=== PATIENT | female | born 1955 | race Caucasian/White ===

== ENCOUNTER → 2017-10-11 | Outpatient (CLI) | payer OTHER ==
[~2017-10-11] MED LIST: CIPR500 PO; PROM25 PO
[2017-10-11 18:10] LABS: BASOPHILS ABSOLUTE AUTO 0.09 K/mm3 (0.00-0.23); BASOPHILS PERCENT AUTO 1 % (0-2); EOSINOPHILS ABSOLUTE AUTO 0.07 K/mm3 (0.00-0.68); EOSINOPHILS PERCENT AUTO 1 % (0-6); Hemoglobin 19.5 g/dL (11.5-16.0); IMMATURE GRAN ABSOLUTE AUTO 0.34 K/mm3 (0.00-0.10); IMMATURE GRAN PERCENT AUTO 3 % (0-1); LYMPHOCYTES ABSOLUTE AUTO 3.22 K/mm3 (0.84-5.20); LYMPHOCYTES PERCENT AUTO 33 % (21-46); MONOCYTES ABSOLUTE AUTO 0.57 K/mm3 (0.16-1.47); MONOCYTES PERCENT AUTO 6 % (4-13); Mean Corpuscular HGB 27.9 pg (26.0-34.0); Mean Corpuscular HGB Conc 31.7 g/dL (31.5-36.5); Mean Corpuscular Volume 88 fL (80-100); Mean Platelet Volume 11.1 fL (9.1-12.4); NEUTROPHILS ABSOLUTE AUTO 5.57 K/mm3 (1.96-9.15); NEUTROPHILS PERCENT AUTO 57 % (41-73); Platelet Count 207 K/mm3 (150-400); RDW Coefficient Variation 15.2 % (11.7-14.2); RDW Standard Deviation 40.4 fL (35.1-46.3); White Blood Cell Count 9.86 K/mm3 (4.00-11.30)
[2017-10-11 18:16] LABS: Hematocrit 61.5 % (33.0-51.0)
[2017-10-11 18:27] LABS: Alanine Aminotransfer (ALT/SGP 34 U/L (12-78); Albumin, Blood 4.5 g/dL (3.4-5.0); Albumin/Globulin Ratio 1.2 (0.8-1.8); Alk Phos 128 U/L (50-136); Anion Gap 11 mmol/L (6-16); Aspartate Aminotrans (AST/SGOT 19 U/L (12-37); Bilirubin, Total 0.5 mg/dL (0.1-1.0); Blood Urea Nitrogen 22 mg/dL (8-24); CHOL/HDL RATIO 7.8; CO2, Blood 25 mmol/L (21-32); Calcium, Blood 9.9 mg/dL (8.5-10.1); Chloride, Blood 100 mmol/L (98-108); Cholesterol 202 mg/dL (50-200); Free Thyroxine 0.99 ng/dL (0.70-1.60); Globulin, Blood 3.9 g/dL (2.2-4.0); Glucose, Blood 208 mg/dL (70-99); HDL Cholesterol 26 mg/dL (>39); LDL/HDL RATIO 3.8; Low Density Lipoprotein Chol 100 mg/dL (0-110); Potassium, Blood 3.9 mmol/L (3.5-5.5); Sodium, Blood 136 mmol/L (136-145); Total Protein, Blood 8.4 g/dL (6.4-8.2); Triglycerides 382 mg/dL (30-160); Very Low Density Lipoprot Chol 76 mg/dL (6-32)
[2017-10-11 18:41] LABS: Bun/Creatinine Ratio 28.4 (12.0-20.0); Creatinine, Blood 0.77 mg/dL (0.40-1.00); Glomerular Filtration Rate >60 (60-)
== END | disposition home or self-care (01) ==
LOC: LAB 16:30 → LAB SHORT 16:30
PROVIDERS: Nurse Practitioner Family
DX: E55.9 Vitamin D deficiency, unspecified (principal); E11.9 Type 2 diabetes mellitus without complications; I10 Essential (primary) hypertension
CPT/HCPCS: 80053; 80061; 82306; 84439; 84443; 85025

== ENCOUNTER 2018-01-07 11:03 | Inpatient (IN) | payer OTHER ==
[~2018-01-07] VITALS: Ht 160 cm; Wt 71.8 kg
[~2018-01-07 11:03] MED LIST changes: -ACET325 PO; -ALBU90OI61 INH; -ATOR40TA PO; -HYDCHL25 PO; -LEVFLO500 PO; -LOSA25 PO; -METF500C PO; -METO25ER PO; -PARO20 PO; -PROZAC20 MG PO
[2018-01-07 11:41] LABS: BASOPHILS ABSOLUTE AUTO 0.03 K/mm3 (0.00-0.23); BASOPHILS PERCENT AUTO 0 % (0-2); EOSINOPHILS ABSOLUTE AUTO 0.01 K/mm3 (0.00-0.68); EOSINOPHILS PERCENT AUTO 0 % (0-6); Hemoglobin 14.8 g/dL (11.5-16.0); IMMATURE GRAN ABSOLUTE AUTO 0.05 K/mm3 (0.00-0.10); IMMATURE GRAN PERCENT AUTO 0 % (0-1); LYMPHOCYTES ABSOLUTE AUTO 2.24 K/mm3 (0.84-5.20); LYMPHOCYTES PERCENT AUTO 14 % (21-46); MONOCYTES ABSOLUTE AUTO 1.14 K/mm3 (0.16-1.47); MONOCYTES PERCENT AUTO 7 % (4-13); Mean Corpuscular HGB 27.7 pg (26.0-34.0); Mean Corpuscular HGB Conc 32.9 g/dL (31.5-36.5); Mean Corpuscular Volume 84 fL (80-100); Mean Platelet Volume 10.8 fL (9.1-12.4); NEUTROPHILS ABSOLUTE AUTO 12.58 K/mm3 (1.96-9.15); NEUTROPHILS PERCENT AUTO 78 % (41-73); Platelet Count 307 K/mm3 (150-400); RDW Coefficient Variation 12.9 % (11.7-14.2); RDW Standard Deviation 39.5 fL (35.1-46.3); Red Blood Cell Count 5.34 M/mm3 (3.80-5.20); White Blood Cell Count 16.05 K/mm3 (4.00-11.30)
[2018-01-07 11:56] LABS: Alanine Aminotransfer (ALT/SGP 21 U/L (12-78); Albumin, Blood 3.8 g/dL (3.4-5.0); Albumin/Globulin Ratio 0.8 (0.8-1.8); Alk Phos 121 U/L (50-136); Anion Gap 11 mmol/L (6-16); Aspartate Aminotrans (AST/SGOT 14 U/L (12-37); Bilirubin, Total 0.5 mg/dL (0.1-1.0); Blood Urea Nitrogen 16 mg/dL (8-24); CO2, Blood 26 mmol/L (21-32); Calcium, Blood 9.3 mg/dL (8.5-10.1); Chloride, Blood 98 mmol/L (98-108); Creatinine, Blood 0.73 mg/dL (0.40-1.00); Globulin, Blood 4.6 g/dL (2.2-4.0); Glomerular Filtration Rate >60 (60-); Glucose, Blood 260 mg/dL (70-99); Potassium, Blood 3.8 mmol/L (3.5-5.5); Sodium, Blood 135 mmol/L (136-145); Total Protein, Blood 8.4 g/dL (6.4-8.2)
[2018-01-07 12:00] LABS: Troponin I <0.015 ng/mL (0.000-0.040)
[2018-01-07 12:36] LABS: Source, Urine Clean Catch
[2018-01-07 12:45] LABS: Bilirubin, Urine Neg (Neg); Blood, Urine 2+ (Neg); Glucose Qualitative, Urine 3+ (Neg); Ketones, Urine Neg (Neg); Leukocyte Esterase, Urine 3+ (Neg); Nitrite, Urine Pos (Neg); Protein, Urine 3+ (Neg); Urobilinogen, Urine NORM (Normal)
[2018-01-07 13:02] LABS: Appearance, Urine Cloudy (Clear); Color, Urine Yellow (P-Yellow)
[2018-01-07 13:19] LABS: Bacteria Many /hpf; Squamous Epithelial Cells Mod /hpf (Few); White Blood Cells, Urine TNTC /hpf (0-5)
[2018-01-07] MEDS ORDERED: PROZAC20 MG PO (16:35)
[2018-01-07] MEDS ORDERED: METF500C PO (16:36)
[2018-01-07] MEDS ORDERED: PARO20 PO (16:37)
[2018-01-07] MEDS ORDERED: METO25ER PO (16:38)
[2018-01-08 05:11] LABS: BASOPHILS ABSOLUTE AUTO 0.02 K/mm3 (0.00-0.23); BASOPHILS PERCENT AUTO 0 % (0-2); EOSINOPHILS ABSOLUTE AUTO 0.01 K/mm3 (0.00-0.68); EOSINOPHILS PERCENT AUTO 0 % (0-6); Hematocrit 36.2 % (33.0-51.0); Hemoglobin 11.9 g/dL (11.5-16.0); IMMATURE GRAN ABSOLUTE AUTO 0.03 K/mm3 (0.00-0.10); IMMATURE GRAN PERCENT AUTO 0 % (0-1); LYMPHOCYTES ABSOLUTE AUTO 1.49 K/mm3 (0.84-5.20); LYMPHOCYTES PERCENT AUTO 19 % (21-46); MONOCYTES ABSOLUTE AUTO 0.71 K/mm3 (0.16-1.47); MONOCYTES PERCENT AUTO 9 % (4-13); Mean Corpuscular HGB 28.1 pg (26.0-34.0); Mean Corpuscular HGB Conc 32.9 g/dL (31.5-36.5); Mean Corpuscular Volume 86 fL (80-100); Mean Platelet Volume 10.2 fL (9.1-12.4); NEUTROPHILS ABSOLUTE AUTO 5.74 K/mm3 (1.96-9.15); NEUTROPHILS PERCENT AUTO 72 % (41-73); Platelet Count 191 K/mm3 (150-400); RDW Coefficient Variation 12.8 % (11.7-14.2); RDW Standard Deviation 39.9 fL (35.1-46.3); Red Blood Cell Count 4.23 M/mm3 (3.80-5.20)
[2018-01-08 05:38] LABS: Anion Gap 8 mmol/L (6-16); Blood Urea Nitrogen 13 mg/dL (8-24); CO2, Blood 27 mmol/L (21-32); Calcium, Blood 8.3 mg/dL (8.5-10.1); Chloride, Blood 108 mmol/L (98-108); Creatinine, Blood 0.68 mg/dL (0.40-1.00); Glomerular Filtration Rate >60 (60-); Glucose, Blood 150 mg/dL (70-99); Potassium, Blood 3.5 mmol/L (3.5-5.5); Sodium, Blood 143 mmol/L (136-145)
[2018-01-08] MEDS ORDERED: HYDCHL25 PO (09:44)
[2018-01-08] MEDS ORDERED: ATOR40TA PO (09:44)
[2018-01-08] MEDS ORDERED: LOSA25 PO (09:44)
[2018-01-08] MEDS ORDERED: ALBU90OI61 INH (09:46)
[2018-01-08] MEDS ORDERED: LEVFLO500 PO (10:40)
[2018-01-08] MEDS ORDERED: ACET325 PO (10:40)
== END 2018-01-08 13:27 | disposition home or self-care (01) | DRG 872 ==
LOC: ER 11:03 → MEDS 14:36 → ENPENDDIS 01-08 10:00 → MEDS 01-08 13:27
PROVIDERS: Emergency Medicine; Internal Medicine; Physician Assistant
DX: A41.9 Sepsis, unspecified organism (principal); N12 Tubulo-interstitial nephritis, not specified as acute or chronic; E87.2 Acidosis; R65.20 Severe sepsis without septic shock; I10 Essential (primary) hypertension; Z79.84 Long term (current) use of oral hypoglycemic drugs; E11.65 Type 2 diabetes mellitus with hyperglycemia
CPT/HCPCS: 36415; 71046; 80048; 80053; 81001; 82947; 83605; 83690; 84484; 85025; 87077; 87086; 87186; 93005; 93010; 96361; 96365; 96375; 99285; J1650; J1885; J1956; J2405; J7030; J7120

== ENCOUNTER → 2018-01-07 | Outpatient (CLI) | payer OTHER ==
[~2018-01-07] MED LIST changes: +ACET325 PO; +ALBU90OI61 INH; +ATOR40TA PO; +HYDCHL25 PO; +LEVFLO500 PO; +LOSA25 PO; +METF500C PO; +METO25ER PO; +PARO20 PO; +PROZAC20 MG PO
== END | disposition home or self-care (01) ==
LOC: LAB SHORT 10:30 → LAB 10:30
DX: N89.8 Other specified noninflammatory disorders of vagina (principal); R10.9 Unspecified abdominal pain
CPT/HCPCS: 87077; 87086; 87186

== ENCOUNTER → 2019-08-03 | Outpatient (CLI) | payer OTHER ==
[~2019-08-03] MED LIST changes: +ACET325 PO; +ALBU90OI61 INH; +ATOR40TA PO; +HYDCHL25 PO; +LEVFLO500 PO; +LOSA25 PO; +METF500C PO; +METO25ER PO; +Norco 5-325 Ta1 EACH PO; +PARO20 PO; +PROZAC20 MG PO
[2019-08-07 16:06] LABS: HPV 16 Negative (Negative); HPV 18 Negative (Negative); HPV OTHER HR TYPES Negative (Negative)
== END | disposition home or self-care (01) ==
LOC: LAB 18:42 → LAB SHORT 18:42
PROVIDERS: Nurse Practitioner Family
DX: Z01.419 Encounter for gynecological examination (general) (routine) without abnormal findings (principal)
CPT/HCPCS: 87624; G0123

== ENCOUNTER 2019-09-13 11:14 | Inpatient (IN) | payer OTHER ==
[~2019-09-13] VITALS: Ht 165.1 cm; Wt 92.6 kg
[2019-09-13 11:36] LABS: Hematocrit 44.1 % (33.0-51.0); Hemoglobin 14.7 g/dL (11.5-16.0); Mean Corpuscular HGB 27.4 pg (26.0-34.0); Mean Corpuscular HGB Conc 33.3 g/dL (31.5-36.5); Mean Corpuscular Volume 82 fL (80-100); Mean Platelet Volume 9.7 fL (9.1-12.4); Platelet Count 363 K/mm3 (150-400); RDW Coefficient Variation 13.8 % (11.7-14.2); Red Blood Cell Count 5.37 M/mm3 (3.80-5.20); White Blood Cell Count 14.86 K/mm3 (4.00-11.30)
[2019-09-13 12:01] LABS: LDL/HDL RATIO 4.2; Magnesium, Blood 1.9 mg/dL (1.6-2.4); Troponin I 0.107 ng/mL (0.000-0.040); Very Low Density Lipoprot Chol 41 mg/dL (6-32)
[2019-09-13 12:02] LABS: Alanine Aminotransfer (ALT/SGP 26 U/L (12-78); Albumin, Blood 3.8 g/dL (3.4-5.0); Albumin/Globulin Ratio 0.9 (0.8-1.8); Alk Phos 129 U/L (50-136); Anion Gap 11 mmol/L (6-16); Aspartate Aminotrans (AST/SGOT 13 U/L (12-37); Bilirubin, Total 0.3 mg/dL (0.1-1.0); Blood Urea Nitrogen 23 mg/dL (8-24); Bun/Creatinine Ratio 31.2 (12.0-20.0); CHOL/HDL RATIO 6.5; CO2, Blood 25 mmol/L (21-32); Calcium, Blood 10.2 mg/dL (8.5-10.1); Chloride, Blood 102 mmol/L (98-108); Cholesterol 203 mg/dL (50-200); Creatinine, Blood 0.74 mg/dL (0.40-1.00); Globulin, Blood 4.4 g/dL (2.2-4.0); Glomerular Filtration Rate >60 (60-); Glucose, Blood 171 mg/dL (70-99); HDL Cholesterol 31 mg/dL (>39); Low Density Lipoprotein Chol 131 mg/dL (0-110); Potassium, Blood 3.1 mmol/L (3.5-5.5); Sodium, Blood 138 mmol/L (136-145); Total Protein, Blood 8.2 g/dL (6.4-8.2); Triglycerides 207 mg/dL (30-160)
--- NOTE | 2019-09-13 13:36 | NUR ---
ASSUMED CARE OF PT UPON HER ARRIVAL FROM [employer]/CT SCAN AT 1143. C/O 8/10 PAIN IN R UPPER CHEST INTO SHOULDER AND BEHIND NECK. A&O X 3, MOANING SOFTLY IN PAIN. HAVING NAUSEA, NO VOMITING. USING BEDPAN WITH ASSISTANCE. NTG GTT INFUSING AT 10 MCG/MIN OR 6 ML/HR INTO LA 20 G IV. RAC 18 G CAME OUT ACCIDENTALLY DURING REPOSITIONING. SPOKE TO DR. COLLINS BY PHONE FOR ADMISSION ORDERS, PAIN MEDS, AND ANTIEMETIC. R WRIST TR BAND SITE WITHOUT BLEEDING OR HEMATOMA, HAS 11 ML AIR, ENCASED IN ARM BOARD. PT HAS BEEN EDUCATED TO KEEP WRIST STRAIGHT.
--- NOTE | 2019-09-13 14:00 | NUR ---
IV ZOFRAN GIVEN BY Minoo QUARLES RN. PT DEVELOPED SEVERAL AREAS OF OF RED SKIN BLOTCHES NEAR IV SITE, WHICH RESOLVED AFTER ~ 45 MINUTES WITHOUT INTERVENTION. NO RESP DISTRESS OR OTHER SIGNS OF ANAPHLAXIS.
[2019-09-13] MEDS ORDERED: OXYB5 PO (15:19)
[2019-09-13] MEDS ORDERED: CYCL10 PO (15:21)
[2019-09-13] MEDS ORDERED: [UNRECOGNIZED DRUG - SUPPLY] PO (15:29)
--- NOTE | 2019-09-13 15:59 | NUR ---
REASSESSMENT: ATTEMPTED TO TITRATE OXYGEN DOWN TO 6 L/MIN NC, BUT O2 SAT NOT STAYING ABOVE 88%. SLEEPING AT TIME OF ASSESSMENT, AROUSES TO SPEECH, ORIENTED. STARTED ON VANCO AND CEFEPIME, ROCEPHIN D/C'D. NO BM YET TODAY. DECLINED BATH TODAY, STATING TOO FATIGUED. GOOD URINE OUTPUT. DENIES PAIN. LUNGS WITH CRACKLES IN BILATERAL LL, CLEAR IN UPPER LOBES.
--- NOTE | 2019-09-13 16:38 | NUR ---
CARDIAC ECHO IN PROGRESS.
--- NOTE | 2019-09-13 16:58 | NUR ---
Echocardiogram completed.
--- NOTE | 2019-09-13 19:23 | NUR ---
CALLED PT'S SPOUSE ABHAY, GAVE UPDATE ON PT CONDITION. PAIN LEVEL HAS DECREASED TO 4/10 FROM 9/10 AFTER TORADOL GIVEN, BP AND HR ARE MORE WNL. NTG GTT TITRATED DOWN TO 30 MCG/HR. PATIENT APPEARS AND STATES SHE IS MUCH MORE CONFORTABLE.
--- NOTE | 2019-09-13 19:37 | NUR ---
SHIFT SUMMARY: PAIN BETTER CONTROLLED AFTER TORADOL ADMINISTRATION. NTG GTT TITRATED DOWN TO 30 MCG/HR. ORIENTED X 3, DROWSY. BP 160-180/80-90'S, HR 80-95. ON 2 L/MIN NC, SAT 95-99%. SINUS RHYTHM WITH BBB. GOOD URINE OUTPUT. C/O NAUSEA, UNABLE TO EAT DINNER. LAST CBG 186, NO INSULIN GIVEN D/T NAUSEA. GOT UP TO BSC X 2 TO URINATE.
[2019-09-13 20:40] LABS: Albumin, Blood 3.5 g/dL (3.4-5.0); Albumin/Globulin Ratio 0.9 (0.8-1.8); Bilirubin, Direct 0.1 mg/dL (0.0-0.3); Bilirubin, Indirect 0.4 mg/dL (0.1-0.7); Bilirubin, Total 0.5 mg/dL (0.1-1.0); Globulin, Blood 3.8 g/dL (2.2-4.0); Total Protein, Blood 7.3 g/dL (6.4-8.2)
--- NOTE | 2019-09-13 21:00 | NUR ---
ASSUMPTION OF CARE ASSUMED CARE OF PT @ 190, PT AWAKE IN BED, ORIENTED TO SELF, PLACE, EVENT, AND FOLLOWING DIRECTIONS. REPORTS 5/10 CP, IMPROVED SINCE TORADAL ADMINISTRATION. ON 2L PER NC TO MAINTAIN OXYGEN SATURATIONS>90%, DENIES SOB. MONITOR SHOWS SINUS RHYTHM WITH HR 80'S-90'S, PT HTN, NITRO GTT @ 30mcg/min FOR CP. R RADIAL ACCESS SITE WITH GAUZE DRESSING, GUAZE DRY, SCANT SANGUINEOUS DRAINAGE NOTED ON SKIN. PT REPORTS NAUSEA AND POOR PO INTAKE. DISCUSSED MORNING POTASSIUM WITH DR RICHARDSON AND UPDATED ON PTS OVERALL STATUS, SEE NEW ORDER FOR POTASSIUM REPLACEMENT, HOSPITAL CONSULT, ABD US, TORADOL, AND LIVER PANEL. DR GUARDADO IN TO SEE PT @ 2044, SEE NEW ORDERS.
--- NOTE | 2019-09-13 23:54 | NUR ---
CHRONIC PAIN PT REPORTS LEG PAIN OF 9/10, STS BETTER WITH SOME REPOSITIONING BUT DECLINES ASSISTANCE OR ADDITIONAL PILLOWS AT THIS TIME. PT STS THIS HAS BEEN A CHRONIC ISSUED THAT HAS BEEN POORLY MANAGED WITH PCP OUTPT. NOTIFIED PT ADDITIONAL FENTANYL CANNOT BE READMINISTERED UNTIL APPROX 0200, PT DECLINED ANY OTHER INTERVENTIONS. PT ALSO STS HAVING DIFFICLUT TIME GETTING COMFORTABLE DUE TO LINES/TUBES AND BP CUFF. PT REMOVED O2 NC AT UNKNOWN TIME, KEPT PT ON RA AT THIS TIME, WILL CONTINUOUSLY MONITOR O2 SATURATIONS. EDUCATED PT OF IMPORTANCE OF MONITORING BP WHILE ON NITRO GTT, PT VERBILIZES UNDERSTANDING.
--- NOTE | 2019-09-14 02:21 | NUR ---
PT UP AT SIDE OF BED, TEARFUL, STS CANNOT SLEEP DUE TO LEG PAIN WHICH IS POORLY MANAGED ON AN OUT PATIENT BASIS. PT ANGRLY WITH CURRENT PCP, IMANI "IT TOOK 3 FREEKING DAYS OF ME CRYING AT NIGHT BEFORE SHE WOULD GIVE ME ANYTHING." PT DECLINES REPOSITIONING, ADDITIONAL PILLLOWS, HEAT/COLD PACK, STS SHE HAS TRIED THOSE THINGS AT HOME AND THEY DO NOT WORK. ONE TIME DOES OF TORADOL PROVIDED. INFORMED PT THAT ALTERNATIVE PAIN MANAGEMENT TECHNIQUES WOULD NEED TO BE ATTEMPTED IF TORADOL INADEQUATE FOR PAIN MANAGEMENT AND THAT TORADOL IS NOT A SENIOR CARE MEDICATION DUE TO IMPACT ON THE KIDNEYS. PT VERBILIZES UNDERSTANDING.
--- NOTE | 2019-09-14 03:23 | NUR ---
PT STS THE TORADOL "IS NOT TOUCHING HER PAIN", THIS RN CONTINUES TO EDUCATE PT REGARDING CHRONIC PAIN/PAIN MANAGEMENT TECHNIQUES. PT OPEN TO TRYING HEAT PACK, PILLOWS AND REPOSITIONING.
[2019-09-14 03:27] LABS: BASOPHILS ABSOLUTE AUTO 0.04 K/mm3 (0.00-0.23); BASOPHILS PERCENT AUTO 0 % (0-2); EOSINOPHILS ABSOLUTE AUTO 0.02 K/mm3 (0.00-0.68); EOSINOPHILS PERCENT AUTO 0 % (0-6); Hematocrit 37.5 % (33.0-51.0); Hemoglobin 12.5 g/dL (11.5-16.0); IMMATURE GRAN ABSOLUTE AUTO 0.06 K/mm3 (0.00-0.10); IMMATURE GRAN PERCENT AUTO 0 % (0-1); LYMPHOCYTES ABSOLUTE AUTO 2.05 K/mm3 (0.84-5.20); LYMPHOCYTES PERCENT AUTO 13 % (21-46); MONOCYTES ABSOLUTE AUTO 0.92 K/mm3 (0.16-1.47); MONOCYTES PERCENT AUTO 6 % (4-13); Mean Corpuscular HGB 27.5 pg (26.0-34.0); Mean Corpuscular HGB Conc 33.3 g/dL (31.5-36.5); Mean Corpuscular Volume 83 fL (80-100); Mean Platelet Volume 9.6 fL (9.1-12.4); NEUTROPHILS PERCENT AUTO 81 % (41-73); Platelet Count 301 K/mm3 (150-400); RDW Standard Deviation 41.9 fL (35.1-46.3); Red Blood Cell Count 4.54 M/mm3 (3.80-5.20); White Blood Cell Count 15.99 K/mm3 (4.00-11.30)
[2019-09-14 03:42] LABS: Anion Gap 7 mmol/L (6-16); Blood Urea Nitrogen 18 mg/dL (8-24); Bun/Creatinine Ratio 22.1 (12.0-20.0); CO2, Blood 26 mmol/L (21-32); Chloride, Blood 103 mmol/L (98-108); Creatinine, Blood 0.82 mg/dL (0.40-1.00); Glomerular Filtration Rate >60 (60-); Glucose, Blood 195 mg/dL (70-99); Sodium, Blood 136 mmol/L (136-145)
--- NOTE | 2019-09-14 06:17 | NUR ---
SHIFT SUMMARY PT DID NOT SLEEP WELL T/O NIGHT, REMAINS ORIENTED, BUT OVERALL PAIN IN LOW BACK AND LEG POORLY MANAGED (SEE PREV NOTES), PT DENIES CP SINCE APPROX 1999. PT MAINTAINED O2 SATURATIONS>90% ON RA FOR MUCH OF SHIFT, MONITOR SHOWS SINUS RHYTHM, PVC'S/BIGEMINY NOTED TOWARDS END OF SHIFT, PT CONTINUES TO DENY CP AT THIS TIME, BP IMPROVED, NITRO GTT @ 15mcg/min. R WRIST IMMOBILIZER REMAINS IN PLACE, FREQUENT REEDUCATION PROVIDED TO PT TO KEEP WRIST IMMOBILIZED AND NON-WEIGHT BARING, CONTINUE TO REINFORCE. PT TOLERATING PO INTAKE, BUT HAS POOR APPETITE. PT REPORTS CHRONIC PAIN TO LOW BACK AND LEG THAT HAS BEEN AN ISSUE FOR THE PREV 5-6 MONTHS. THIS RN RECEIVED VARYING REPORTS FROM PT ON HOME MANAGEMENT, AT ONE POINT PT REPORTED TAKING NAPROXEN FOR CHRONIC PAIN, NOW STS SHE NO LONGER TAKES NAPROXEN BUT TAKES A "GREEN PILL", STS WILL BRING IN RX. MULTIPLE ATTEMPTS WITH FENTANYL, TORADOL, REPOSITIONING, AND HEAT APPLICATIONS WERE UNSUCCESSFUL AT MANAGING PAIN TO A TOLERABLE LEVEL.
--- NOTE | 2019-09-14 08:15 | NUR ---
ASSUMED CARE: REPORT RECEIVED FROM ALDO Bonilla RN. ASSUMED CARE OF THIS PT AT APPROX 0700. ON ASSESSMENT, THE PT IS AWAKE, A&O & CRYING OUT IN PAIN. WHILE CONVERSING W/ THE PT SHE IS ABLE TO SETTLE SOMEWHAT & STS THAT PAIN IS IMPROVED WHILE SHE IS DISTRACTED. DESCRIBES PAIN RADIATING FROM HER LOWER BACK DOWN TO HER R FOOT & STS IT IS "NERVE PAIN." PT TAKING INDOMETHACIN AT HOME & STS THIS IS THE "ONLY THING" THAT MANAGES HER PAIN AT ALL. WILL DISCUSS W/ PROVIDERS. LS ARE CLEAR T/O, PT ON RA W/ O2 SATS > 92%. MONITOR SHOWS SR-ST W/ HR 90-100s, BP STABLE. NO GI/ COMPLAINTS. SKIN OVERALL CDI & R RADIAL SITE S/P ANGIOGRAM IS WNL; OPSITE DRESSING CDI, IMMOBILIZER IN PLACE. SITE FREE OF BLEEDING, BRUISING OR HEMATOMA FORMATION. WILL CONTINUE TO MONITOR & UPDATE NEEDED.
--- NOTE | 2019-09-14 09:30 | NUR ---
DR THOMAS & DR SARMIENTO: DR THOMAS AT BEDSIDE TO EVAL PT. POOR PAIN CONTROL IS DISCUSSED & ORDERS PLACED FOR ULTRAM. NO OTHER CHANGES AT THIS TIME. DR SARMIENTO AT BEDSIDE TO EVAL PT. INCREASED ECTOPY DISCUSSED & METOPROLOL DOSE INCREASED TO 25 MG DAILY W/ ADDED 12.5 MG DOSE THIS AM TO EQUAL 25 MG TODAY. LOW MAG 1.9 ALSO DISCUSSED & ORDERS FOR IV REPLETION HAVE BEEN PLACED. PROVIDER STS THAT PT IS NOT TO TAKE INDOMETHACIN R/T INCREASED RISK OF IA, RISKS OF NSAID USE WILL BE DISCUSSED W/ THE PT BY THIS RN. WILL CONTINUE TO MONITOR & UPDATE NEEDED.
--- NOTE | 2019-09-14 17:03 | NUR ---
DR THMOAS: CALL TO PROVIDER TO NOTIFY HIM THAT NITRO DRIP HAS BEEN OFF FOR APPROX 1 HR & PT CONTINUES W/ NO CP OR ARM PAIN. ALSO INFORMED HIM THAT PT's CHRONIC PAIN IS NOW BETTER CONTROLLED W/ ADDITION OF ULTRAM, & THAT NUMBER OF PVCs HAS DECREASED SIGNIFICANTLY SINCE MAG SULFATE INFUSION. STS OKAY FOR PT TO BE MEDICAL W/ NO TELE STATUS, ORDERS PLACED.
--- NOTE | 2019-09-14 17:38 | NUR ---
SHIFT SUMMARY: NO ACUTE CHANGES SINCE PRIOR UPDATES. PT REMAINS A&O, PLEASANT & COOPERATIVE. SHE CONTINUES TO DENY CHEST/ARM PAIN & STS THAT HER BACK/LEG PAIN IS IMPROVED SUBSTANTIALLY THIS AFTERNOON. LS REMAIN CLEAR T/O, PT ON RA W/ O2 SATS > 92%. MONITOR SHOWS SR W/ HR 80s, BP STABLE, PVCs NOW INFREQUENT. NO GI/ COMPLAINTS. SKIN OVERALL CDI, R RADIAL ACCESS SITE WNL & UNCHANGED FROM PRIOR ASSESSMENT. WILL CONTINUE TO MONITOR & REPORT OFF TO ONCOMING RN.
--- NOTE | 2019-09-14 18:19 | NUR ---
Per admit trigger, I made several atempts to meet with Quynh to offer information on ACP. On each attempt, she was curled up in a ball and sleeping deeply. I left information on bedside table. [employer] Operator services will remain available.
--- NOTE | 2019-09-14 20:39 | NUR ---
ASSUMPTION OF CARE ASSUMED CARE OF PT @ 1900, PT RESTING IN BED, AROUSABLE TO VERBAL STIMULI, ORIENTED TO SELF, EVENT, LOCATION AND FOLLOWING DIRECTIONS. O2 SATURATIONS>90% ON RA, MONITOR SHOWS HR 90'S, PT MILDLY HYPERTENSIVE, NITRO GTT OFF. PT DENIES CP AND SOB. R RADIAL SITE STABLE, SEE WOUND ASSESSMENT. PT REPORTS IMPROVED PAIN MANAGEMENT WITH NEW MEDICATION (ULTRAM), EVENING PRN MEDICATIONS PROVIDED TO PROVIDE ADEQUATE PAIN CONTROL. CALL LIGHT WITHIN REACH.
--- NOTE | 2019-09-14 22:12 | NUR ---
REPORT CALLED TO ANTONIO SAMUEL
--- NOTE | 2019-09-14 22:29 | NUR ---
Patient arrived to room 301 from ICU via wheelchair with SENIOR ENVIRONMENTAL PRACTICE LEADER. A7OX4, no complaints of pain. right radial puncture site rrom yesterday's angio soft flat and dry without eccymosis or hematoma wrapped in arm immobilizer. Up independently in room. VSS.
[2019-09-15 05:12] LABS: Hemoglobin 13.2 g/dL (11.5-16.0); Mean Corpuscular HGB Conc 32.2 g/dL (31.5-36.5); Mean Corpuscular Volume 84 fL (80-100); Mean Platelet Volume 9.7 fL (9.1-12.4); Platelet Count 277 K/mm3 (150-400); RDW Coefficient Variation 14.1 % (11.7-14.2); RDW Standard Deviation 43.2 fL (35.1-46.3); Red Blood Cell Count 4.89 M/mm3 (3.80-5.20); White Blood Cell Count 10.19 K/mm3 (4.00-11.30)
[2019-09-15 05:33] LABS: Anion Gap 4 mmol/L (6-16); Blood Urea Nitrogen 14 mg/dL (8-24); Bun/Creatinine Ratio 20.9 (12.0-20.0); CO2, Blood 27 mmol/L (21-32); Chloride, Blood 108 mmol/L (98-108); Creatinine, Blood 0.67 mg/dL (0.40-1.00); Glomerular Filtration Rate >60 (60-); Glucose, Blood 118 mg/dL (70-99); Magnesium, Blood 2.3 mg/dL (1.6-2.4); Potassium, Blood 3.8 mmol/L (3.5-5.5); Sodium, Blood 139 mmol/L (136-145)
[2019-09-15] MEDS ORDERED: ASPI81CH PO (12:05)
[2019-09-15] MEDS ORDERED: METO25ER PO (12:06)
[2019-09-15] MEDS ORDERED: PANT40 PO (12:07)
[2019-09-15] MEDS ORDERED: TICA90TA PO (12:07)
[2019-09-15] MEDS ORDERED: TRAMADOL HCL E100 M2 PO (12:08)
== END 2019-09-15 12:55 | disposition home or self-care (01) | DRG 247 ==
LOC: ER 11:14 → ICUE 11:32 → ICUW 11:32 → ICUE 11:42 → MEDS 09-14 22:21
PROVIDERS: Emergency Medicine; ADMIT Internal Medicine Interventional Cardiology
PROC: 027034Z Dilation of Coronary Artery, One Artery with Drug-eluting Intraluminal Device, Percutaneous Approach (ICD-10-PCS; principal; 2019-09-13)
PROC: 02C03ZZ Extirpation of Matter from Coronary Artery, One Artery, Percutaneous Approach (ICD-10-PCS; 2019-09-13)
PROC: B211YZZ Fluoroscopy of Multiple Coronary Arteries using Other Contrast (ICD-10-PCS; 2019-09-13)
DX: I21.4 Non-ST elevation (NSTEMI) myocardial infarction (principal); I50.22 Chronic systolic (congestive) heart failure; I11.0 Hypertensive heart disease with heart failure; E83.42 Hypomagnesemia; M54.30 Sciatica, unspecified side; E11.9 Type 2 diabetes mellitus without complications; E78.5 Hyperlipidemia, unspecified; E87.6 Hypokalemia; Z88.0 Allergy status to penicillin
CPT/HCPCS: 36415; 71275; 76705; 76937; 80048; 80053; 80061; 80076; 82947; 83036; 83690; 83735; 84484; 85025; 85027; 85347; 86850; 86900; 86901; 93005; 93010; 93454; 96374; 96375; 99152; 99153; 99285-25; A9270-GY; C1725; C1757; C1769; C1874; C1887; C1894; C8929; C9113; C9606; J1644; J1885; J1940; J2250; J2405; J3010; J3246; J3475; J3480; J7030; Q9957; Q9967

== ENCOUNTER 2023-02-14 09:24 | Inpatient (IN) | payer MEDICARE, OTHER ==
[~2023-02-14] VITALS: Ht 170.2 cm; Wt 63.5 kg
[~2023-02-14 09:24] MED LIST changes: +ALBU90OI INH; -ALBU90OI61 INH; +ASPI81CH PO; +CYCL10 PO; +NITR100CA PO; +ONDA4ODT MM; +OXYB5 PO; +PANT40 PO; +TICA90TA PO; +TRAMADOL HCL E100 M2 PO; +[UNRECOGNIZED DRUG - SUPPLY] PO
[2023-02-14 10:44] LABS: Albumin, Blood 4.1 g/dL (3.4-5.0); Albumin/Globulin Ratio 1.1 (0.8-1.8); Bilirubin, Total 0.4 mg/dL (0.1-1.0); Bun/Creatinine Ratio 20.9 (12.0-20.0); Calcium, Blood 10.2 mg/dL (8.5-10.1); Creatinine, Blood 0.67 mg/dL (0.40-1.00); Globulin, Blood 3.7 g/dL (2.2-4.0); Total Protein, Blood 7.8 g/dL (6.4-8.2)
[2023-02-14 10:56] LABS: Bicarbonate Venous 29.6 mmol/L (24.0-30.0); PCO2 Venous 36.1 mmHg (38-42); pH Blood Venous 7.51 (7.34-7.37)
[2023-02-14 11:10] LABS: BASOPHILS ABSOLUTE AUTO 0.04 K/mm3 (0.00-0.23); BASOPHILS PERCENT AUTO 0 % (0-2); EOSINOPHILS ABSOLUTE AUTO 0.01 K/mm3 (0.00-0.68); EOSINOPHILS PERCENT AUTO 0 % (0-6); Hemoglobin 15.4 g/dL (11.5-16.0); IMMATURE GRAN ABSOLUTE AUTO 0.02 K/mm3 (0.00-0.10); IMMATURE GRAN PERCENT AUTO 0 % (0-1); LYMPHOCYTES ABSOLUTE AUTO 1.16 K/mm3 (0.84-5.20); LYMPHOCYTES PERCENT AUTO 11 % (21-46); MONOCYTES ABSOLUTE AUTO 0.21 K/mm3 (0.16-1.47); MONOCYTES PERCENT AUTO 2 % (4-13); Mean Corpuscular HGB 28.1 pg (26.0-34.0); Mean Corpuscular HGB Conc 34.2 g/dL (31.5-36.5); Mean Corpuscular Volume 82 fL (80-100); Mean Platelet Volume 9.4 fL (9.1-12.4); NEUTROPHILS PERCENT AUTO 87 % (41-73); Platelet Count 312 K/mm3 (150-400); RDW Coefficient Variation 13.6 % (11.7-14.2); RDW Standard Deviation 40.5 fL (35.1-46.3); Red Blood Cell Count 5.49 M/mm3 (3.80-5.20); White Blood Cell Count 10.84 K/mm3 (4.00-11.30)
[2023-02-14 18:22] VITALS: BP 158/92
[2023-02-14 19:41] VITALS: BP 144/77
[2023-02-14] MEDS ORDERED: BUSPIRONE HCL7.5 M6 PO (21:19)
[2023-02-14] MEDS ORDERED: EZETIMIBE10 M6 PO (21:19)
[2023-02-14] MEDS ORDERED: LOSARTAN-HCTZ1 EAC5 PO (21:20)
[2023-02-14] MEDS ORDERED: PIOGLITAZONE HC15 MG PO (21:20)
[2023-02-14] MEDS ORDERED: ASPI81CH PO (21:21)
[2023-02-14] MEDS ORDERED: THERA-D2000 UNIT PO (21:21)
[2023-02-14] MEDS ORDERED: Ventolin/Prove6.7 GM INH (21:21)
--- NOTE | 2023-02-14 23:22 | NUR ---
ASSUMED PT CARE FORM JONAH RN ON . A&OX4, EASILY DISTRACTED. DENIES ANY CHEST PAIN/PRESSURE AT THIS TIME. HR IS SR WITH PVC'S IN THE 80'S. DENIES SOB, RESPIRATIONS EVEN AND UNLABORED. O2 SATS DIPPING TO 88 WHEN AWAKE AND TALKING, MAINTAINING THERE. PLACED ON 2 LPM O2 VIA NC. PT REPORTS "THEY ALWAYS HAVE TROUBLE WITH MY OXYGEN" BUT DENIES SUPPLIMENTAL O2 AT HOME. REPORTS "I'M SUPPOSED TO USE A CPAP AT HOME BUT I NEVER GOT ONE BECAUSE I KNOW I WONT WEAR IT". BP STABLE, SEE RECORDED VITAL SIGNS. AFEBRILE. ORIENTED TO ROOM AND CALL LIGHT. PT STATES SHE WISHES TO BE DNR. REVIEWED PT BEING LIMITED CODE IN COMPUTER. PT STATES SHE PREFERS TO BE DNR. DR. ZAMORA INFORMED WHILE ROUNDING ON UNIT. PT RESTING IN BED. DENIES NEEDS AT THIS TIME. CALL LIGHT IN REACH. BED IN LOW POSITION.
[2023-02-15 00:19] VITALS: BP 144/78
[2023-02-15 03:48] VITALS: BP 155/73
--- NOTE | 2023-02-15 04:14 | NUR ---
PT COMPLAINING OF PAIN 4/10 IN MID ABDOMEN RIGHT BELOW STERNUM. DENIES THAT IS TRAVELS ANYWHERE. VITAL SIGNS STABLE. NO CHANGES NOTED WITH TELEMETRY. PT REPORT SOB, STATS > 92% ON 2 LPM. MEDICATED FOR NAUSEA, PAIN, AND ANXIETY, SEE EMAR. PT UP TO BSC WITH UNSTEADY GAIT. VOIDED CLEAR, YELLOW URINE. ON RETURNING TO BED PT STATES PAIN IS IMPROVING. WILL CONTINUE TO MONITOR. PT ICE CHIPS ONLY SINCE MN, NOW NPO PER ORDERS. CALL LIGHT IN REACH. BED IN LOW POSITION.
[2023-02-15 08:17] VITALS: BP 126/75
[2023-02-15 11:20] VITALS: BP 143/94
[2023-02-15 17:00] VITALS: BP 147/89
--- NOTE | 2023-02-15 17:15 | NUR ---
SHIFT SUMMARY NO ACUTE CHANGES THIS SHIFT. PT A&OX4. VSS. SPO02>90% ON RA THIS SHIFT. TELEMETRY SHOWS NSR W/ PVCS AND BBB, HR 70'S-100'S. DOWN THIS AM FOR FIRST PORTION OF STRESS TEST. ECHO DONE THIS AFTERNOON. SEE CHART. NPO AT MIDNIGHT FOR SECOND PORTION OF STRESS TEST 02/16. UP IN SHOWER THIS AFTERNOON. DAUGHTER AND GRANDSON VISITED THIS AFTERNOON. CALL [facility] IN REACH.
[2023-02-15 20:22] VITALS: BP 145/73
--- NOTE | 2023-02-15 21:27 | NUR ---
ASSUMED PT CARE FROM JONAH SAMUEL ON . A&OX4. DENIES ANY CHEST PAIN/PRESSURE. HR SR WITH PVC'S AND BBB IN 90'S. STABLE BP, SEE RECORDED VITAL SIGNS. DENIES SOB. O2 SATS > 92% ON RA. RESPIRATIONS EVEN AND UNLABORED. DENIES NAUSEA. DENIES NEEDS AT THIS TIME. CALL LIGHT IN REACH. BED IN LOW POSITION.
[2023-02-16 00:07] VITALS: BP 138/71
[2023-02-16 04:05] VITALS: BP 140/82
[2023-02-16 04:05] LABS: Base Excess Venous 6.6 mmol/L; Bicarbonate Venous 29.4 mmol/L (24.0-30.0); PCO2 Venous 45.9 mmHg (38-42); pH Blood Venous 7.44 (7.34-7.37)
[2023-02-16 04:08] LABS: BASOPHILS ABSOLUTE AUTO 0.02 K/mm3 (0.00-0.23); BASOPHILS PERCENT AUTO 0 % (0-2); EOSINOPHILS PERCENT AUTO 0 % (0-6); Hematocrit 43.3 % (33.0-51.0); Hemoglobin 14.7 g/dL (11.5-16.0); IMMATURE GRAN ABSOLUTE AUTO 0.09 K/mm3 (0.00-0.10); IMMATURE GRAN PERCENT AUTO 1 % (0-1); LYMPHOCYTES ABSOLUTE AUTO 1.72 K/mm3 (0.84-5.20); LYMPHOCYTES PERCENT AUTO 9 % (21-46); MONOCYTES ABSOLUTE AUTO 0.31 K/mm3 (0.16-1.47); MONOCYTES PERCENT AUTO 2 % (4-13); Mean Corpuscular HGB 28.3 pg (26.0-34.0); Mean Corpuscular HGB Conc 33.9 g/dL (31.5-36.5); Mean Corpuscular Volume 83 fL (80-100); Mean Platelet Volume 9.8 fL (9.1-12.4); NEUTROPHILS ABSOLUTE AUTO 16.46 K/mm3 (1.96-9.15); NEUTROPHILS PERCENT AUTO 89 % (41-73); Platelet Count 343 K/mm3 (150-400); RDW Coefficient Variation 14.3 % (11.7-14.2); RDW Standard Deviation 43.4 fL (35.1-46.3); Red Blood Cell Count 5.19 M/mm3 (3.80-5.20)
[2023-02-16 04:29] LABS: Bun/Creatinine Ratio 39.3 (12.0-20.0); Calcium, Blood 9.6 mg/dL (8.5-10.1); Creatinine, Blood 0.69 mg/dL (0.40-1.00); Potassium, Blood 4.4 mmol/L (3.5-5.5)
--- NOTE | 2023-02-16 05:10 | NUR ---
SHIFT SUMMARY: NO ACUTE CHANGES NOTED DURING THIS SHIFT. PT PLACED ON 2 LPM WHEN SLEEPING DEEPLY DUE TO O2 SATS DECREASING TO 88%. WHILE AWAKE PT ON RA WITH SATS IN HIGH 90'S. VOIDING CLEAR, YELLOW URINE WITHOUT DIFFICULTY. NPO AT UT FOR STRESS TEST THIS A.M. CALL LIGHT IN REACH. BED ALARM ON FOR PT SAFETY, UNSTEADY GAIT WHEN DROWSY.
[2023-02-16 08:12] VITALS: BP 129/76
--- NOTE | 2023-02-16 10:58 | NUR ---
REPEAT EKG PERFORMED PT HAD WENT INTO A REGULAR VENTRICULAR RHYTHM WITH WHAT LOOKS LIKE AN ST CHANGE. THIS VENTRICULAR RHYTHM WAS SHORT IN DURATION BEFORE RETURNING TO SINUS RHYTHM WITH BBB AND ST DEPRESSION. EKG REVEALS THAT ST DEPRESSION IS UNCHANGED FROM EKG TAKEN LAST NOC, AND NEW EKG COFORMS WITH LAST EKG TAKEN
[2023-02-16 12:04] VITALS: BP 161/83
--- NOTE | 2023-02-16 14:25 | NUR ---
ATTEMPTED TO DO NUCLEAR STRESS TEST WITH LEXISCAN. DURING TEST, PT IV INFILTRATED. IV WAS DC'D. CATH INTACT. PRESSURE DSG APPLIED. VSS. TEST WILL BE ATTEMPTED AGAIN TOMORROW AM. A NEW IV IS BEING INSERTED.
[2023-02-16 16:52] VITALS: BP 160/60
--- NOTE | 2023-02-16 17:58 | NUR ---
PT'S STRESS TEST WAS NOT SUCCESSFUL TODAY IV INFILTRATED, WILL TRY AGAIN TOMORROW. PT HAS BEEN RESTING IN BED T/O THE DAY, ANXIOUS APPEARING, BUT IS A/O X4 ANSWERING QUESTIONS APPROPRIATELY. DENIES CP OR SOB. VSS. PT INDEPENDANT TO BATHROOM. SHE HAS REQUIRED INSULIN COVERAGE FOR BLOOD SUGARS, PT DOES APPEAR TO HAVE LOW UNDERSTANDING OF HER DIABETES DIAGNOSIS, BUT IS WILLING TO LEARN AND INVOLVED IN HER CARE. PT REPORTS A GOOD AMOUNT OF STRESS WITHIN HER HOME RELATED TO HER SPOUSE OF 42 YEARS HAVING AN AFFAIR, SHE REPORTS THAT SHE IS COPING WELL WITH THIS STRESS.
[2023-02-16 21:34] VITALS: BP 160/76
--- NOTE | 2023-02-16 22:59 | NUR ---
ASSUMED CARE AT 1900 PT LAYING IN BED SLEEPING AT SHIFT CHANGE. SHE IS A/O X4 AND ABLE TO MAKE HER NEEDS KNOWN; SHE IS ODD AT TIMES TELLING PERSONAL STORIES ASSUMING THAT STAFF KNOW THE INDIVIDUALS IN HER STORY FROM SEVERAL YEARS AGO; SHE IS PLESENT THOUGH AND REDIRECTABLE. SPO2 >95% ON RA. AFEBRILE. HR 70-80'S; NO C/O CHEST PAIN OR DYSPNEA. BP STABLE. AMBULATES INDEPENDENTLY; STEADY ON HER FEET. SEE SHIFT ASSESSMENT FOR FULL ASSESSMENT.
[2023-02-17 00:09] VITALS: BP 147/81
[2023-02-17 03:56] LABS: Hematocrit 41.8 % (33.0-51.0); Mean Corpuscular HGB 28.3 pg (26.0-34.0); Mean Corpuscular HGB Conc 33.5 g/dL (31.5-36.5); Mean Corpuscular Volume 85 fL (80-100); Mean Platelet Volume 9.9 fL (9.1-12.4); Platelet Count 313 K/mm3 (150-400); RDW Coefficient Variation 14.4 % (11.7-14.2); RDW Standard Deviation 44.4 fL (35.1-46.3); Red Blood Cell Count 4.94 M/mm3 (3.80-5.20); White Blood Cell Count 16.13 K/mm3 (4.00-11.30)
[2023-02-17 03:57] VITALS: BP 147/86
[2023-02-17 04:19] LABS: CHOL/HDL RATIO 5.2; Cholesterol 206 mg/dL (50-200); HDL Cholesterol 40 mg/dL (>39); LDL/HDL RATIO 3.4; Low Density Lipoprotein Chol 137 mg/dL (0-110); Triglycerides 147 mg/dL (30-160); Very Low Density Lipoprot Chol 29 mg/dL (6-32)
--- NOTE | 2023-02-17 06:24 | NUR ---
END OF SHIFT SUMMARY NO ACUTE EVENTS OVERNIGHT. PT WAS ABLE TO SLEEP FOR MOST OF THE NIGHT. SHE CONT TO BE A/O X4 AND ABLE TO MAKE HER NEEDS KNOWN. SPO2 >98% ON RA. HR 60-70'S. SBP 140-160'S; NO C/O CHEST PAIN OR DYSPNEA. SHE IS ABLE TO AMBULATE TO THE BATHROOM INDEPENDENTLY. THE ONLY IV SHE HAD INFULTRATED THIS AM; THIS IV WAS ABLE TO FLUSH AT THE BEGINNING OF THE SHIFT WITHOUT PAIN AND IS NOW PAINFUL; IV PULLED AND UNABLE TO PLACE ANOTHER, VERY CHALLENGING TO FIND ACCESS. WILL REPORT TO AM RN WHEN AVAILABLE.
[2023-02-17 08:25] VITALS: BP 145/80
--- NOTE | 2023-02-17 09:29 | NUR ---
AM NOTE: PATIENT ALERT AND ORIENTED X4. DENIES NUMBNESS/TINGLING. BILATERAL CREW FOREMAN STRENGTH. MOVES IND IN BED. PERRLA. ON ROOM AIR SATING ABOVE 92%. DENIES SOB/COUGH. LUNGS SOUNDING CLEAR AND DIM IN BASES. EVEN AND UNLABORED RESPIRATIONS. TELE SHOWING SR WITH PVC'S. HR 80-90'S. BP STABLE. DENIES CHEST PAIN/PRESSURE/PALPITATIONS. 2ND PART OF STRESS TEST COMPLETED THIS AM. NO EDEMA NOTED. EATING AND VOIDING WNL. BOWEL TONES PRESENT. DENIES ABDOMINAL PAIN/NAUSEA. SKIN OVERALL C/D/I. POWERGLIDE TO LEFT UPPER ARM, SALINE LOCKED. PATIENT EATING BREAKFAST AT THIS TIME. CALL LIGHT IN REACH, DENIES NEEDS.
[2023-02-17 11:10] VITALS: BP 161/93
[2023-02-17] MEDS ORDERED: LOSA50 PO ×2 (13:45→14:04)
[2023-02-17] MEDS ORDERED: IPRAT-ALBUT 0.5-3 ML INH (14:03)
[2023-02-17] MEDS ORDERED: METO25ER PO (14:05)
[2023-02-17] MEDS ORDERED: TRELEGY ELLIPT1 EACH INH (14:07)
[2023-02-17] MEDS ORDERED: PANT40 PO (14:08)
--- NOTE | 2023-02-17 14:54 | NUR ---
DISCHARGE: NO ACUTE CHANGES. PATIENT DISCHARGE WNL. VITAL SIGNS REMAINS STABLE. PATIENT DISCHARGE INSTRUCTIONS REVIEWED IN DETAIL WITH PATIENT AND . PCP APPOINTMENT SCHEDULED WHERE PATIENT WILL DISCUSS GI AND CARDIOLOGY FOLLOW UP. NEW MEDICATIONS DISCUSSED WELL MEDICATIONS TO DISCONTINUE. MARLA FROM CASE MANAGEMENT PLACED ORDER FOR NEBULIZER. IV REMOVED WNL. PATIENT LEFT UNIT WITH DISCHARGE PACKET AND ALL PERSONAL BELONGINGS VIA WHEELCHAIR. MEDICATIONS FAXED TO [facility].
== END 2023-02-17 14:56 | disposition home or self-care (01) | DRG 191 ==
LOC: ER 09:24 → PCU 16:09
PROVIDERS: Emergency Medicine; Internal Medicine; ADMIT Internal Medicine
DX: J44.1 Chronic obstructive pulmonary disease with (acute) exacerbation (principal); I50.22 Chronic systolic (congestive) heart failure; R07.9 Chest pain, unspecified; E11.9 Type 2 diabetes mellitus without complications; E78.5 Hyperlipidemia, unspecified; Z66 Do not resuscitate; I11.0 Hypertensive heart disease with heart failure; I44.7 Left bundle-branch block, unspecified; K21.9 Gastro-esophageal reflux disease without esophagitis; D17.21 Benign lipomatous neoplasm of skin and subcutaneous tissue of right arm; F41.9 Anxiety disorder, unspecified; I25.2 Old myocardial infarction; Z79.82 Long term (current) use of aspirin; Z88.0 Allergy status to penicillin; Z79.899 Other long term (current) drug therapy; Z98.890 Other specified postprocedural states
CPT/HCPCS: 36415; 71045; 78452; 80048; 80053; 80061; 82803; 82947; 83036; 83690; 83880; 84145; 84484; 85025; 85027; 85379; 93005; 93010; 93017; 93306; 94640; 94664; 94760; 94762; 96372-59; 96374; 96375; 99285-25; A9270; A9500; C1751; C9113; J0280; J0706; J1644; J2250; J2405; J2765; J2785; J2920; J2930; J3010

== ENCOUNTER 2023-10-16 18:58 | Emergency (ER) | payer MEDICARE, OTHER ==
[~2023-10-16] VITALS: Ht 157.5 cm; Wt 65.8 kg
[~2023-10-16 18:58] MED LIST changes: +BUSPIRONE HCL7.5 M6 PO; +EZETIMIBE10 M6 PO; +IPRAT-ALBUT 0.5-3 ML INH; +LOSA50 PO; +LOSARTAN-HCTZ1 EAC5 PO; +PIOGLITAZONE HC15 MG PO; +THERA-D2000 UNIT PO; +TRELEGY ELLIPT1 EACH INH; +Ventolin/Prove6.7 GM INH
[2023-10-16 19:09] VITALS: BP 189/95
[2023-10-16 19:36] LABS: BASOPHILS ABSOLUTE AUTO 0.04 K/mm3 (0.00-0.23); BASOPHILS PERCENT AUTO 0 % (0-2); EOSINOPHILS ABSOLUTE AUTO 0.09 K/mm3 (0.00-0.68); EOSINOPHILS PERCENT AUTO 1 % (0-6); Hematocrit 42.8 % (33.0-51.0); Hemoglobin 14.3 g/dL (11.5-16.0); IMMATURE GRAN ABSOLUTE AUTO 0.02 K/mm3 (0.00-0.10); IMMATURE GRAN PERCENT AUTO 0 % (0-1); LYMPHOCYTES ABSOLUTE AUTO 2.99 K/mm3 (0.84-5.20); LYMPHOCYTES PERCENT AUTO 25 % (21-46); MONOCYTES ABSOLUTE AUTO 0.72 K/mm3 (0.16-1.47); MONOCYTES PERCENT AUTO 6 % (4-13); Mean Corpuscular HGB 27.5 pg (26.0-34.0); Mean Corpuscular HGB Conc 33.4 g/dL (31.5-36.5); Mean Corpuscular Volume 82 fL (80-100); Mean Platelet Volume 9.1 fL (9.1-12.4); NEUTROPHILS ABSOLUTE AUTO 8.14 K/mm3 (1.96-9.15); NEUTROPHILS PERCENT AUTO 68 % (41-73); Platelet Count 302 K/mm3 (150-400); RDW Coefficient Variation 14.5 % (11.7-14.2); RDW Standard Deviation 43.8 fL (35.1-46.3)
[2023-10-16 19:55] LABS: Albumin, Blood 3.9 g/dL (3.4-5.0); Albumin/Globulin Ratio 1.1 (0.8-1.8); Bilirubin, Total 0.4 mg/dL (0.1-1.0); Bun/Creatinine Ratio 27.5 (12.0-20.0); Calcium, Blood 9.6 mg/dL (8.5-10.1); Creatinine, Blood 0.62 mg/dL (0.40-1.00); Globulin, Blood 3.4 g/dL (2.2-4.0); Potassium, Blood 3.9 mmol/L (3.5-5.5); Total Protein, Blood 7.3 g/dL (6.4-8.2)
[2023-10-16] MEDS ORDERED: Ketorolac Tromethamine 30mg Vial IV ONE (20:15)
[2023-10-16] MEDS ORDERED: HYDROcodone 5-APAP 325 TAB PO ONE (20:20)
== END 2023-10-16 20:27 | disposition home or self-care (01) ==
LOC: ER 18:58
PROVIDERS: Physician Assistant
DX: M65.4 Radial styloid tenosynovitis [de Quervain] (principal); Z88.0 Allergy status to penicillin; Z79.899 Other long term (current) drug therapy; Z79.82 Long term (current) use of aspirin; E11.9 Type 2 diabetes mellitus without complications; I11.0 Hypertensive heart disease with heart failure; E78.5 Hyperlipidemia, unspecified; I50.20 Unspecified systolic (congestive) heart failure; I25.2 Old myocardial infarction
CPT/HCPCS: 73110; 80053; 83605; 85025; 96374; 99283-25; A9270; J1885

== ENCOUNTER → 2024-05-16 | Outpatient (CLI) | payer MEDICARE, OTHER ==
[2024-05-16 14:23] LABS: BASOPHILS ABSOLUTE AUTO 0.04 K/mm3 (0.00-0.23); BASOPHILS PERCENT AUTO 1 % (0-2); EOSINOPHILS ABSOLUTE AUTO 0.09 K/mm3 (0.00-0.68); EOSINOPHILS PERCENT AUTO 1 % (0-6); Hematocrit 43.1 % (33.0-51.0); Hemoglobin 14.2 g/dL (11.5-16.0); IMMATURE GRAN ABSOLUTE AUTO 0.02 K/mm3 (0.00-0.10); IMMATURE GRAN PERCENT AUTO 0 % (0-1); LYMPHOCYTES ABSOLUTE AUTO 2.04 K/mm3 (0.84-5.20); LYMPHOCYTES PERCENT AUTO 24 % (21-46); MONOCYTES ABSOLUTE AUTO 0.46 K/mm3 (0.16-1.47); MONOCYTES PERCENT AUTO 5 % (4-13); Mean Corpuscular HGB 27.9 pg (26.0-34.0); Mean Corpuscular HGB Conc 32.9 g/dL (31.5-36.5); Mean Corpuscular Volume 85 fL (80-100); Mean Platelet Volume 10.5 fL (9.1-12.4); NEUTROPHILS ABSOLUTE AUTO 5.83 K/mm3 (1.96-9.15); NEUTROPHILS PERCENT AUTO 69 % (41-73); Platelet Count 309 K/mm3 (150-400); RDW Coefficient Variation 14.1 % (11.7-14.2); RDW Standard Deviation 43.9 fL (35.1-46.3); Red Blood Cell Count 5.09 M/mm3 (3.80-5.20); White Blood Cell Count 8.48 K/mm3 (4.00-11.30)
[2024-05-16 14:33] LABS: Iron Serum 86 ug/dL (50-170); Very Low Density Lipoprot Chol 20 mg/dL (6-32)
[2024-05-16 14:40] LABS: Ferritin, Serum 28 ng/mL (8-252); LDL/HDL RATIO 3.8; Percent Saturation 23.6 % (15.0-50.0); Total Iron Binding Capacity 364 ug/dL (250-450)
[2024-05-16 14:41] LABS: Alanine Aminotransfer (ALT/SGP 20 U/L (12-78); Albumin, Blood 3.5 g/dL (3.4-5.0); Alk Phos 105 U/L (50-136); Anion Gap 7 mmol/L (3-11); Aspartate Aminotrans (AST/SGOT 14 U/L (12-37); Bilirubin, Total 0.4 mg/dL (0.1-1.0); Blood Urea Nitrogen 14 mg/dL (8-24); Bun/Creatinine Ratio 21.1 (12.0-20.0); CHOL/HDL RATIO 5.3; CO2, Blood 28 mmol/L (21-32); Calcium, Blood 9.1 mg/dL (8.5-10.1); Chloride, Blood 106 mmol/L (98-108); Cholesterol 211 mg/dL (50-200); Creatinine, Blood 0.66 mg/dL (0.40-1.00); Globulin, Blood 3.5 g/dL (2.2-4.0); Glomerular Filtration Rate 97 (60-); Glucose, Blood 118 mg/dL (70-99); HDL Cholesterol 40 mg/dL (>39); Low Density Lipoprotein Chol 151 mg/dL (0-110); Sodium, Blood 137 mmol/L (136-145); Triglycerides 102 mg/dL (30-160)
[2024-05-18 09:14] LABS: HIV 1,2 COMBO ANTIGEN/ANTIBODY Negative (Negative)
[2024-05-18 13:20] LABS: HEPATITIS C AB CIA INTERP Negative (Negative); HEPATITIS C ANTIBODY CIA INDEX 0.11 IV
== END ==
LOC: LAB SHORT 12:44 → LAB 12:44
PROVIDERS: Nurse Practitioner Family
DX: Z11.4 Encounter for screening for human immunodeficiency virus [HIV] (principal); Z11.59 Encounter for screening for other viral diseases; E11.9 Type 2 diabetes mellitus without complications; D50.8 Other iron deficiency anemias; F33.1 Major depressive disorder, recurrent, moderate; E55.9 Vitamin D deficiency, unspecified; F41.8 Other specified anxiety disorders
CPT/HCPCS: 80053; 80061; 82306; 82728; 83036; 83540; 83550; 84443; 85025; 86803; 87389

== ENCOUNTER 2024-11-27 13:12 | Observation (INO) | payer MEDICARE, OTHER ==
[~2024-11-27] VITALS: Ht 160 cm; Wt 65.8 kg
[2024-11-27 15:19] LABS: BASOPHILS ABSOLUTE AUTO 0.06 K/mm3 (0.00-0.23); BASOPHILS PERCENT AUTO 1 % (0-2); EOSINOPHILS ABSOLUTE AUTO 0.02 K/mm3 (0.00-0.68); EOSINOPHILS PERCENT AUTO 0 % (0-6); Hematocrit 45.9 % (33.0-51.0); Hemoglobin 15.2 g/dL (11.5-16.0); IMMATURE GRAN PERCENT AUTO 1 % (0-1); LYMPHOCYTES ABSOLUTE AUTO 1.62 K/mm3 (0.84-5.20); LYMPHOCYTES PERCENT AUTO 12 % (21-46); MONOCYTES ABSOLUTE AUTO 0.38 K/mm3 (0.16-1.47); MONOCYTES PERCENT AUTO 3 % (4-13); Mean Corpuscular HGB 27.9 pg (26.0-34.0); Mean Corpuscular HGB Conc 33.1 g/dL (31.5-36.5); Mean Corpuscular Volume 84 fL (80-100); NEUTROPHILS ABSOLUTE AUTO 10.91 K/mm3 (1.96-9.15); NEUTROPHILS PERCENT AUTO 83 % (41-73); RDW Coefficient Variation 14.8 % (11.7-14.2); Red Blood Cell Count 5.45 M/mm3 (3.80-5.20); White Blood Cell Count 13.09 K/mm3 (4.00-11.30)
[2024-11-27 15:20] LABS: Alanine Aminotransfer (ALT/SGP 24 U/L (12-78); Alk Phos 121 U/L (50-136); Anion Gap 12 mmol/L (3-11); Aspartate Aminotrans (AST/SGOT 24 U/L (12-37); Bilirubin, Total 0.5 mg/dL (0.1-1.0); Blood Urea Nitrogen 19 mg/dL (8-24); Bun/Creatinine Ratio 37.3 (12.0-20.0); CO2, Blood 23 mmol/L (21-32); Calcium, Blood 9.6 mg/dL (8.5-10.1); Chloride, Blood 105 mmol/L (98-108); Creatinine, Blood 0.51 mg/dL (0.40-1.00); Ethanol (Alcohol), Blood, Med <3 mg/dL; Globulin, Blood 4.2 g/dL (2.2-4.0); Glomerular Filtration Rate 102 (60-); Glucose, Blood 163 mg/dL (70-99); Potassium, Blood 4.5 mmol/L (3.5-5.5); Sodium, Blood 135 mmol/L (136-145); Total Protein, Blood 8.2 g/dL (6.4-8.2)
[2024-11-27] MEDS ORDERED: Ondansetron HCl 2 MG / ML 2ML Vial IV ONE (16:05)
[2024-11-27 16:23] LABS: Mean Platelet Volume 9.7 fL (9.1-12.4); Platelet Count 368 K/mm3 (150-400)
[2024-11-27] MEDS ORDERED: NS 1,000 ML IV SCH (18:25)
[2024-11-27] MEDS ORDERED: Meclizine HCl 25 MG Tab PO ONE (20:25)
[2024-11-27] MEDS ORDERED: Prochlorperazine Edisylate 10 mg Vial IV ONE (20:25)
[2024-11-27 23:29] VITALS: BP 151/68
--- NOTE | 2024-11-27 23:30 | NUR ---
ASSUMPTION OF CARE. PT ARRIVED VIA W/C FROM ED. PT ORIENTED TO ROOM AND CALL LIGHT SYSTEM. ADMITTED FOR VERTIGO. ASSISTED TO BED. RESTING COMFORTABLY. GEOPHYSICS SCIENTIST TO DO ADMISSION. CALL LIGHT IN REACH. BED IN LOWEST POSITION.
[2024-11-28] MEDS ORDERED: Ondansetron HCl 2 MG / ML 2ML Vial IV PRN (00:35)
[2024-11-28] MEDS ORDERED: NS 1,000 ML IV SCH (00:35)
[2024-11-28] MEDS ORDERED: Loperamide HCl 2 MG Cap PO PRN (00:40)
[2024-11-28 03:42] VITALS: BP 126/56
--- NOTE | 2024-11-28 04:34 | NUR ---
[employer] NOTIFIED THIS NURES OF BUNDLE BRANCH FLIP ON TELE READING. PT HAS ECG IN ED OF L BBB WITH FREQUENT PVC'S. PT RESTING COMFORTABLY IN BED. ASYMPTOMATIC. DISCUSSED WITH [employer] AND COLE TURK RN. CONTINUE TO MONITOR.
[2024-11-28 05:22] LABS: BASOPHILS ABSOLUTE AUTO 0.05 K/mm3 (0.00-0.23); BASOPHILS PERCENT AUTO 1 % (0-2); EOSINOPHILS ABSOLUTE AUTO 0.07 K/mm3 (0.00-0.68); EOSINOPHILS PERCENT AUTO 1 % (0-6); Hematocrit 41.3 % (33.0-51.0); Hemoglobin 13.5 g/dL (11.5-16.0); IMMATURE GRAN ABSOLUTE AUTO 0.02 K/mm3 (0.00-0.10); IMMATURE GRAN PERCENT AUTO 0 % (0-1); LYMPHOCYTES ABSOLUTE AUTO 2.86 K/mm3 (0.84-5.20); LYMPHOCYTES PERCENT AUTO 28 % (21-46); MONOCYTES ABSOLUTE AUTO 0.63 K/mm3 (0.16-1.47); MONOCYTES PERCENT AUTO 6 % (4-13); Mean Corpuscular HGB 27.6 pg (26.0-34.0); Mean Corpuscular HGB Conc 32.7 g/dL (31.5-36.5); Mean Corpuscular Volume 84 fL (80-100); Mean Platelet Volume 9.5 fL (9.1-12.4); NEUTROPHILS ABSOLUTE AUTO 6.53 K/mm3 (1.96-9.15); NEUTROPHILS PERCENT AUTO 64 % (41-73); Platelet Count 357 K/mm3 (150-400); RDW Standard Deviation 45.9 fL (35.1-46.3); White Blood Cell Count 10.16 K/mm3 (4.00-11.30)
--- NOTE | 2024-11-28 05:23 | NUR ---
SOFTWARE QUALITY TESTER SUMMARY: PT ADMITTED FOR ACUTE SEVERE VERTIGO. PT A&O X4. MAKES NEEDS KNOWN. INDPENDENT WITH BED MOBILITY. C/O INTERMITTENT DIZZINESS IN BED. ASSISTED TO BSC AT TOA. PT UNSTEADY AND QUICKLY ASSISTED BACK TO BED TO REGAIN STABILITY. PT HAS BEEN RESTING COMFORTABLY SHORTLY ATER ARRIVAL FROM ED. SEE PREVIOUS NOTE RE: TELEMETRY. PT REMAINS ASYMPTOMATIC DENYING CARDIAC SYMPTOMS. BED IN LOWEST POSITION. CARES ONGOING ORDERED. CALL [facility] IN REACH.
[2024-11-28 05:49] LABS: Albumin, Blood 3.5 g/dL (3.4-5.0); Bilirubin, Total 0.5 mg/dL (0.1-1.0); Calcium, Blood 9.7 mg/dL (8.5-10.1); Creatinine, Blood 0.56 mg/dL (0.40-1.00); Globulin, Blood 3.6 g/dL (2.2-4.0); Potassium, Blood 3.5 mmol/L (3.5-5.5); Total Protein, Blood 7.1 g/dL (6.4-8.2)
[2024-11-28] MEDS ORDERED: Tiotropium Bromide 2.5 MCG/ACT MIST INHAL (10 ACT/4 GM) INH SCH (07:15)
[2024-11-28] MEDS ORDERED: Albuterol HFA200 ACT/6.7 GM INH INH PRN (07:15)
[2024-11-28] MEDS ORDERED: Mometasone/Formoterol MDI 100/5 mcg 13 GM INH SCH (07:15)
[2024-11-28] MEDS ORDERED: Pantoprazole Sodium 40 MG Tab PO SCH (07:30)
[2024-11-28 08:15] VITALS: BP 134/67
[2024-11-28] MEDS ORDERED: Aspirin 81 MG Chew PO SCH (09:00)
[2024-11-28] MEDS ORDERED: BusPIRone HCl 5 MG Tab PO SCH (09:00)
[2024-11-28] MEDS ORDERED: Metoprolol Succinate 25 MG TABCR PO SCH (09:00)
[2024-11-28] MEDS ORDERED: Losartan Potassium 50 MG Tab PO SCH (09:00)
[2024-11-28] MEDS ORDERED: Meclizine HCl 25 MG Tab PO SCH (09:00)
[2024-11-28] MEDS ORDERED: Enoxaparin 40 MG/0.4 ML SYR SC SCH (09:00)
[2024-11-28] MEDS ORDERED: Ipratropium/Albuterol SulF 2.5-0.5MG/3 ML Amp INH SCH (10:00)
[2024-11-28 11:41] LABS: Source, Urine Clean Catch
[2024-11-28 11:45] LABS: Appearance, Urine Clear (Clear); Bilirubin, Urine Neg (Neg); Blood, Urine Neg (Neg); Color, Urine Yellow (P-Yellow); Glucose Qualitative, Urine Neg (Neg); Ketones, Urine 1+ (Neg); Leukocyte Esterase, Urine 3+ (Neg); Nitrite, Urine Neg (Neg); Protein, Urine 2+ (Neg); Urobilinogen, Urine NORM (Normal)
[2024-11-28 11:59] LABS: Bacteria Mod /hpf; Red Blood Cells, Urine 0-2 /hpf (0-2); Squamous Epithelial Cells Mod /hpf (Few); White Blood Cells, Urine 25-50 /hpf (0-5)
[2024-11-28 12:18] VITALS: BP 141/78
[2024-11-28] MEDS ORDERED: FLUTICASONE-SA1 EAC8 INH (14:16)
[2024-11-28] MEDS ORDERED: EFFEXOR XR37.5 MG PO (14:16)
[2024-11-28] MEDS ORDERED: ALBU90OI INH (14:16)
[2024-11-28] MEDS ORDERED: FISH OIL 1,0001 EA10 PO (14:17)
[2024-11-28] MEDS ORDERED: PRESERVISION A1 EAC4 PO (14:18)
--- NOTE | 2024-11-28 15:58 | NUR ---
CLIENT A&OX4. CONTINUES TO EXPERIENCE VERTIGO WHILE LYING IN BED. CLIENT ON TELE WITH SR BBB. SEEN BY PT AND EDU PRUITT. CLIENT'S VERTIGO GREATLY DIMINISHED. DISCHARGE ORDERS RECEIVED. TELE D/C'D.IV D/C'D. CLIENT INFORMED OF FOLLOW UP INSTRUCTION, ALONG WITH D/C EDUCATION. CLIENT AMBULATED OFF OF THE UNIT ESCORTED BY HER DAUGHTER.
== END 2024-11-28 16:00 | disposition home or self-care (01) ==
LOC: ER 13:12 → MEDS 13:13 → ERHOLD 13:13 → MEDS 23:16
PROVIDERS: Emergency Medicine; ADMIT Internal Medicine
DX: R42 Dizziness and giddiness (principal); E11.9 Type 2 diabetes mellitus without complications; E78.5 Hyperlipidemia, unspecified; I21.19 ST elevation (STEMI) myocardial infarction involving other coronary artery of inferior wall; I11.0 Hypertensive heart disease with heart failure; I50.20 Unspecified systolic (congestive) heart failure; K52.9 Noninfective gastroenteritis and colitis, unspecified; Z79.82 Long term (current) use of aspirin; Z79.899 Other long term (current) drug therapy; Z88.0 Allergy status to penicillin
CPT/HCPCS: 36415; 70450; 80053; 80320; 81001; 82947; 83690; 83735; 83880; 84484; 85025; 87086; 93005; 93010; 94640; 94664; 94760; 96372; 96374; 96375; 97110; 97116; 97162; 99285-25; A9270; G0378; J0780; J1650; J2405; J7030